=== PATIENT | male | born 1935 | race Caucasian/White ===

== ENCOUNTER 2017-11-28 12:10 | Emergency (ER) | payer MEDICARE ==
[~2017-11-28] VITALS: Ht 177.8 cm; Wt 79.4 kg
[~2017-11-28 12:10] MED LIST: ALBU2SYR2 PO; APIX5TAB3 PO; ASPI-630 PO; ATOR40TA PO; CAPT12.52 PO; DRON400T PO; GARL1CAP3 PO; LEVO500T8 PO; META10TA PO; METO50TA4 PO; NIAC500T PO; OMEP40CA2 PO; SOTA160T PO; WARF2TAB7 PO
[2017-11-28 12:51] LABS: BASO % 1 % (0-3); EOS % 1 % (0-3); HEMATOCRIT 41.8 % (39.0-53.0); HEMOGLOBIN 14.1 g/dL (13.0-17.5); LYMPH # 1.2 x10^3/uL (1.0-4.8); LYMPH % 15 % (24-48); MEAN CORPUSCULAR HEMOGLOBIN 32 pg (25-35); MEAN CORPUSCULAR HGB CONC 34 g/dL (31-37); MEAN CORPUSCULAR VOLUME 95 fL (79-100); MONO # 0.8 x10^3/uL (0.0-1.1); MONO % 10 % (0-9); NEUT # 5.8 x10^3uL (1.8-7.7); NEUT % 74 % (31-73); PLATELET COUNT 191 x10^3/uL (140-400); RED BLOOD COUNT 4.41 x10^6/uL (4.30-5.70); RED CELL DISTRIBUTION WIDTH 13.4 % (11.5-14.5); WHITE BLOOD COUNT 7.8 x10^3/uL (4.0-11.0)
--- NOTE | 2017-11-28 13:02 | EKG ---
[address] [address] Test Date: 2017-11-28 Test Time: 12:58:32 Pat Name: SIOBHAN NOBLES Department: Room: Gender: M Solution Lead: BOY : 1935 Requested By: ULICES ABREU Order Number: [id number] Reading MD: Measurements Intervals [place] Rate: 80 P: -90 ND: 198 QRS: -5 QRSD: 124 T: 24 QT: 414 QTc: 481 Interpretive Statements SINUS RHYTHM VENTRICULAR PREMATURE COMPLEX(ES) LEFTWARD AXIS QRS(T) CONTOUR ABNORMALITY CONSISTENT WITH INFERIOR INFARCT PROBABLY OLD ABNORMAL ECG RI6.01 Compared to ECG 07/26/2016 15:24:49 No significant changes
--- NOTE | 2017-11-28 13:12 | RAD ---
Exam: AP portable chest History: Shortness of air. Comparison: None. Findings: The heart and mediastinal structures are within normal limits for size. Lungs are without infiltrate. No pleural effusion or pneumothorax is identified. Emphysematous changes of lungs can be seen. Dual-lead AICD by left subclavian approach is present. Impression: 1. No acute cardiopulmonary process. Electronically signed by: Camron Newsome MD (11/28/2017 1:10 PM) [place] [id number]
[2017-11-28 13:14] LABS: ALBUMIN 3.1 g/dL (3.4-5.0); CALCIUM 9.1 mg/dL (8.5-10.1); CREATININE 0.9 mg/dL (0.7-1.3); DIRECT BILIRUBIN 0.3 mg/dL (0.0-0.2); GFR 80.8; POTASSIUM 3.9 mmol/L (3.5-5.1); TOTAL BILIRUBIN 1.2 mg/dL (0.2-1.0); TOTAL PROTEIN 6.6 g/dL (6.4-8.2)
[2017-11-28] MEDS ORDERED: FURO-69 PO (13:46)
--- NOTE | 2017-11-28 13:51 | PHYS DOC ---
Past History Past Medical History: CAD, [place], Other Past Surgical History: Other Alcohol Use: None Drug Use: None Adult General Chief Complaint Chief Complaint: SHORTNESS OF BREATH HPI HPI 82-year-old male presenting to the emergency department today with orthopnea at night difficulty sleeping and shortness of breath with exertion. He feels no shortness of breath currently. He denies any pain. He denies fevers or chills. He reports recently getting over influenza but is feeling much better from this. He is not coughing any longer and does not have any muscle aches. He has not been having a fever. He has a history of coronary artery disease status post pacemaker/defibrillator. He denies any swelling in his legs. He denies abdominal pain nausea vomiting diaphoresis fevers or chills. This shortness of breath that is worse when he lays down has been present for a little over a week. Review of systems is negative for chest pain abdominal pain fevers chills oliguria dysuria headache neck stiffness. All other review of systems is negative unless otherwise noted in history of present illness. ED course: 82-year-old male presenting to the emergency department today with worsening shortness of breath when he lays down and with exertion however currently is asymptomatic. On arrival, nl hr. Satting well on RA. bp wnl. On examination the patient is well-appearing breathing comfortably without any distress. He is alert and nontoxic appearing. Lungs are clear to auscultation bilaterally. Abdomen is soft nontender nondistended without any down tenderness or guarding. Negative McBurney's point. Negative Cummings sign. No edema present the legs. No signs of cellulitis or any new rashes. Otherwise exam is unremarkable. EKG obtained and reviewed by myself shows sinus rhythm with a regular rate. Not suggestive of ischemia. similar to previous 07.26.16. Chest x- ray obtained shows no obvious acute abnormality. No infiltrate. No effusion. No pneumothorax. Blood work unremarkable including a negative troponin. Oxygen saturations remain within normal limits while in the emergency room. We had the patient have a monitored oxygen saturations ambulation test. He was able to ambulate without any drop in his oxygen saturations. I offered the patient to be admitted the hospital for serial troponin monitoring and to monitor his symptoms however the patient declined. He desires to be discharged home. ProBNP is mildly elevated. Clinically is having some signs of heart failure (orthopnea and elevated probnp) without any signs of pulm edema on chest xray or crackles on auscultation. He is clinically oxygenating well in the emergency department and asymptomatic. I wrote the patient for 20 mg of furosemide daily and instructed him to follow-up with his primary care doctor in the next 2-3 days. I also recommended he follow up with his production technologist within the next 4-5 days. The patient was then discharged home in stable condition to follow up with their primary care physician over the next 2-3 days. They were to return if their symptoms worsened or if they were concerned for any reason. [id number] discharge instructions and return precautions were given. Patient's questions were answered to their satisfaction. Patient is comfortable with plan. Review of Systems Review of Systems SEE ABOVE. Allergies Allergies Allergies Coded Allergies Type Severity Reaction Last Updated Verified No Known Drug Allergies 11/23/14 No Physical Exam Physical Exam SEE ABOVE Constitutional: Well developed, well nourished, no acute distress, non-toxic appearance. [] HENT: Normocephalic, atraumatic, bilateral external ears normal, oropharynx moist, no oral exudates, nose normal. [] Eyes: PERRLA, EOMI, conjunctiva normal, no discharge. [] Neck: Normal range of motion, no tenderness, supple, no stridor. [] Cardiovascular: nl heart rate w/ regular rhythm, no murmur Lungs & Thorax: Bilateral breath sounds clear to auscultation [] Abdomen: Bowel sounds normal, soft, no tenderness, no masses, no pulsatile masses. [] Skin: Warm, dry, no erythema, no rash. [] Back: No tenderness, no CVA tenderness. [] Extremities: No tenderness, no cyanosis, no clubbing, ROM intact, no edema. [] Neurologic: Alert and oriented X 3, normal motor function, normal sensory function, no focal deficits noted. [] Psychologic: Affect normal, judgement normal, mood normal. [] Current Patient Data Lab Results Laboratory Tests Test 11/28/17 12:37 White Blood Count 7.8 x10^3/uL (4.0-11.0) Red Blood Count 4.41 x10^6/uL (4.30-5.70) Hemoglobin 14.1 g/dL (13.0-17.5) Hematocrit 41.8 % (39.0-53.0) Mean Corpuscular Volume 95 fL (79-100) Mean Corpuscular Hemoglobin 32 pg (25-35) Mean Corpuscular Hemoglobin Concent 34 g/dL (31-37) Red Cell Distribution Width 13.4 % (11.5-14.5) Platelet Count 191 x10^3/uL (140-400) Neutrophils (%) (Auto) 74 % (31-73) H Lymphocytes (%) (Auto) 15 % (24-48) L Monocytes (%) (Auto) 10 % (0-9) H Eosinophils (%) (Auto) 1 % (0-3) Basophils (%) (Auto) 1 % (0-3) Neutrophils # (Auto) 5.8 x10^3uL (1.8-7.7) Lymphocytes # (Auto) 1.2 x10^3/uL (1.0-4.8) Monocytes # (Auto) 0.8 x10^3/uL (0.0-1.1) Eosinophils # (Auto) 0.0 x10^3/uL (0.0-0.7) Basophils # (Auto) 0.0 x10^3/uL (0.0-0.2) Sodium Level 129 mmol/L (136-145) L Potassium Level 3.9 mmol/L (3.5-5.1) Chloride Level 96 mmol/L (98-107) L Carbon Dioxide Level 23 mmol/L (21-32) Anion Gap 10 (6-14) Blood Urea Nitrogen 11 mg/dL (8-26) Creatinine 0.9 mg/dL (0.7-1.3) Estimated GFR (Cockcroft-Gault) 80.8 Glucose Level 107 mg/dL (70-99) H Calcium Level 9.1 mg/dL (8.5-10.1) Total Bilirubin 1.2 mg/dL (0.2-1.0) H Direct Bilirubin 0.3 mg/dL (0.0-0.2) H Aspartate Amino Transferase (AST) 22 U/L (15-37) Alanine Aminotransferase (ALT) 29 U/L (16-63) Alkaline Phosphatase 61 U/L (46-116) Troponin I Quantitative < 0.017 ng/mL (0-0.055) LZ-Wxb-E-Type Natriuretic Peptide 1166 pg/mL (0-449) H Total Protein 6.6 g/dL (6.4-8.2) Albumin 3.1 g/dL (3.4-5.0) L Lipase 147 U/L (73-393) EKG EKG [] Radiology/Procedures Radiology/Procedures [] Course & Med Decision Making Course & Med Decision Making Pertinent Labs and Imaging studies reviewed. (See chart for details) [] Dragon Disclaimer Dragon Disclaimer This electronic medical record was generated, in whole or in part, using a voice recognition dictation system. Departure Departure: Impression: Primary Impression: Orthopnea Disposition: HOME, SELF-CARE Condition: STABLE Referrals: MARIELA KAY (PCP) Patient Instructions: Shortness of Breath, Kwph-uo-Vlor Additional Instructions: Thank you for allowing us to participate in your care today. Followup with your primary care physician in 3 days if your symptoms do not improve. Call your Primary Doctor tomorrow and inform them of your visit today. If you do not have a primary care provider you can ask for a list of our primary care providers. Return to the emergency department you have any new or concerning findings. This should be evaluated by the primary care physician and any necessary consulting services for continued management within a few days after discharge. Return to emergency room if you have any new or concerning symptoms including but not limited to fever, chills, nausea, vomiting, intractable pain, any new rashes, chest pain, shortness of air, uncontrolled bleeding, difficulty breathing, and/or vision loss. Scripts Furosemide (LASIX) 20 Mg Tablet 1 TAB PO DAILY, #7 TAB 0 Refills Prov: ULICES ABREU MD 11/28/17 ULICES ABREU MD Nov 28, 2017 13:51
[2017-11-28 13:52] VITALS: BP 129/87
== END 2017-11-28 14:14 | disposition home or self-care (01) ==
LOC: ER 12:10
DX: R06.01 Orthopnea (principal); I25.10 Atherosclerotic heart disease of native coronary artery without angina pectoris; I25.2 Old myocardial infarction
CPT/HCPCS: 36415; 71045; 80048; 80076; 83690; 83880; 84484; 85025; 93005; 94640; 99285-25

== ENCOUNTER → 2018-01-18 | Outpatient (CLI) | payer MEDICARE ==
[~2018-01-18] MED LIST changes: +FURO-69 PO; -WARF2TAB7 PO; +WARF2TAB96 PO
[2018-01-18 13:10] LABS: CALCIUM 8.6 mg/dL (8.5-10.1); CREATININE 0.9 mg/dL (0.7-1.3); GFR 80.8; MAGNESIUM 1.9 mg/dL (1.8-2.4); POTASSIUM 3.9 mmol/L (3.5-5.1)
== END | disposition home or self-care (01) ==
LOC: LAB 12:15
PROVIDERS: ATTEND Internal Medicine Cardiovascular Disease
DX: I47.2 Ventricular tachycardia (principal); E78.5 Hyperlipidemia, unspecified
CPT/HCPCS: 36415; 80048; 83735

== ENCOUNTER → 2018-08-20 | Outpatient (CLI) | payer MEDICARE ==
--- NOTE | 2018-08-20 15:47 | RAD ---
Two-view right hand 08/20/2018 Clinical indications: Fall with continued right hand pain after one month. COMPARISON: None. FINDINGS: No acute fracture or traumatic malalignment. Mild osteopenia. 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 Mild scattered DIP and PIP osteoarthritis. Soft tissues unremarkable. IMPRESSION: 1. No acute osseous abnormality. 2. Scattered mild hand and wrist osteoarthritis, as detailed above. Electronically signed by: Bertrand Thornton MD (08/20/2018 3:44 PM) [id number]
== END | disposition home or self-care (01) ==
LOC: RAD 08:55
PROVIDERS: ATTEND Physician Assistant Medical
DX: M19.031 Primary osteoarthritis, right wrist (principal); M19.041 Primary osteoarthritis, right hand; M85.841 Other specified disorders of bone density and structure, right hand
CPT/HCPCS: 73120

== ENCOUNTER → 2019-06-24 | Outpatient (CLI) | payer MEDICARE ==
--- NOTE | 2019-06-24 08:31 | RAD ---
RIBS RIGHT AND PA CHEST 06/24/2019 7:48 AM INDICATION: Chest wall pain COMPARISON: 11/28/2017 chest radiograph TECHNIQUE: Portable frontal view of the chest is provided. 3 views the right ribs are provided. FINDINGS: The cardiomediastinal silhouette is similar in appearance. Pulmonary emphysematous changes are present. Left chest wall cardiac device is identified with leads projecting over the right atrium and right ventricle. There may be a 7.5 mm soft tissue nodule in the right lower lobe projecting over the anterior right sixth rib. There are no significant pleural effusions. There is no pulmonary vascular congestion. No pneumothorax. No acutely displaced right-sided rib fracture is visualized. No suspicious osseous abnormality. S-shaped scoliosis of the thoracolumbar spine with apex dextrocurvature at L2-L3. [place] levocurvature is noted at L4-L5. IMPRESSION: 1. Pulmonary emphysematous changes with possible 7.5 mm soft tissue nodule in the right lower lobe. Further evaluation with chest CT is recommended. 2. No acutely displaced right-sided rib fracture is identified. 3. S-shaped scoliosis of the thoracolumbar spine. Electronically signed by: Patricia Arcos MD (06/24/2019 8:28 AM) [facility]
== END | disposition home or self-care (01) ==
LOC: RAD 07:37
PROVIDERS: ATTEND Physician Assistant Medical
DX: J43.8 Other emphysema (principal); R07.89 Other chest pain
CPT/HCPCS: 71101

== ENCOUNTER → 2019-06-27 | Outpatient (CLI) | payer MEDICARE ==
--- NOTE | 2019-06-27 12:54 | RAD ---
EXAM: CT Chest without IV contrast CLINICAL HISTORY: Abnormality on chest x-ray COMPARISON: 06/24/2019 TECHNIQUE: CT of the chest without intravenous contrast. Axial, coronal and sagittal reformatted images were generated. ---PQRS compliance statement - One or more of the following individualized dose reduction techniques were utilized for this study: 1. Automated exposure control 2. Adjustment of the mA and/or kV according to patient size 3. Use of iterative reconstruction technique--- FINDINGS: Lack of intravenous contrast limits evaluation of solid organs, vasculature, and lymph nodes. Chest: Heart is not enlarged. Coronary artery calcifications are seen. Pacer leads are seen within the heart. No pericardial effusion. Bilateral emphysematous changes are seen. A 4 mm left apical lung nodule is stable to 01/02/2016. A 7 mm left apical lung nodule (series 2 image 22) was not seen on prior examination. Calcified granuloma left lower lobe. A 1 cm right apical pleural-based lung nodule is stable to borderline decreased. An 8 mm right upper lobe lung nodule (series 2 image 61) is stable. No pleural effusion or pneumothorax. No thoracic lymphadenopathy by size criteria. Visualized Upper abdomen: A 1.1 cm left hepatic lobe cystic lesion is seen. Multiple renal cystic lesions are partially profiled bilaterally. Bones: Multiple subacute anterior right rib fractures are seen. IMPRESSION: 1. Bilateral lung nodules are seen including a new 7 mm left apical lung nodule. Follow-up in 3-6 months is recommended. 2. Additional bilateral lung nodules are essentially stable. Electronically signed by: Jared Miguel MD (06/27/2019 12:52 PM) [facility]
== END | disposition home or self-care (01) ==
LOC: CT 09:08
PROVIDERS: ATTEND Physician Assistant Medical
DX: R91.8 Other nonspecific abnormal finding of lung field (principal); J43.9 Emphysema, unspecified
CPT/HCPCS: 71250

== ENCOUNTER → 2019-07-09 | Outpatient (CLI) | payer MEDICARE ==
[~2019-07-09] MED LIST changes: +IOHEXOL 240 MG/ML 50ML VIAL. ONE; +IOHEXOL 300 MG/ML 75 ML VIAL. IV ONE
[2019-07-09 08:36] LABS: BASO % 0 % (0-3); EOS # 0.1 x10^3/uL (0.0-0.7); EOS % 1 % (0-3); HEMATOCRIT 44.9 % (39.0-53.0); HEMOGLOBIN 14.9 g/dL (13.0-17.5); LYMPH # 1.1 x10^3/uL (1.0-4.8); LYMPH % 14 % (24-48); MEAN CORPUSCULAR HEMOGLOBIN 32 pg (25-35); MEAN CORPUSCULAR HGB CONC 33 g/dL (31-37); MEAN CORPUSCULAR VOLUME 96 fL (79-100); MONO # 0.8 x10^3/uL (0.0-1.1); MONO % 11 % (0-9); NEUT # 5.8 x10^3uL (1.8-7.7); NEUT % 74 % (31-73); PLATELET COUNT 204 x10^3/uL (140-400); RED BLOOD COUNT 4.67 x10^6/uL (4.30-5.70); WHITE BLOOD COUNT 7.8 x10^3/uL (4.0-11.0)
[2019-07-09 08:46] LABS: ALBUMIN 3.5 g/dL (3.4-5.0); ALBUMIN/GLOBULIN RATIO 0.9 (1.0-1.7); CALCIUM 8.8 mg/dL (8.5-10.1); CREATININE 1.1 mg/dL (0.7-1.3); GFR 63.9; POTASSIUM 4.6 mmol/L (3.5-5.1); TOTAL BILIRUBIN 0.6 mg/dL (0.2-1.0); TOTAL PROTEIN 7.4 g/dL (6.4-8.2)
[2019-07-09 09:41] LABS: SEDIMENTATION RATE 9 (0-15)
--- NOTE | 2019-07-09 10:20 | RAD ---
The abdomen and pelvis wit CT of the abdomen and pelvis with contrast 07/09/2019 10:03 AM Technique: Multidetector CT imaging of the abdomen and pelvis was performed following the administration of IV contrast. Findings: Partially visualized lung bases demonstrate cystic changes, likely reflecting emphysema. Ill-defined low-attenuation lesion in the posterior right liver is seen measuring 3.4 cm longitudinally by 2.8 cm AP by 1.7 cm transverse. Some peripheral nodular enhancement may be present. Stable from prior exams likely a hemangioma. Remaining liver is grossly unremarkable. Probable cholelithiasis noted within the gallbladder. The adrenal glands are within normal limits. The spleen is unremarkable. Multiple renal cysts are seen bilaterally. Multiple indeterminate attenuation renal lesions are seen bilaterally. Within the inferior right kidney there is mild increase in size in the relatively hyperdense lesion measuring 2 cm on today's exam, previously measuring 1.6 cm. Other smaller similar-appearing lesions appear slightly larger as well. Larger higher attenuation lesion in the superior left kidney measures 2.4 cm on today's exam, previously measuring 1.9 cm. Lesions most likely reflect hemorrhagic or proteinaceous cysts, though solid renal neoplasms cannot be excluded on the basis of this exam. Follow-up multiphase CT could be considered as clinically indicated. The pancreas is unremarkable. A rectal stump is noted. The remainder of the colon appears to be surgically removed. No evidence of bowel obstruction is identified. Visualized bowel demonstrates no acute inflammatory change. A right lower quadrant ileostomy is noted. Contrast is seen through small bowel extending into the ostomy appliance. No free fluid or free air is seen in the abdomen or pelvis. There is an infrarenal abdominal aortic aneurysm measuring is in diameter, grossly unchanged. Diffuse osseous sclerotic vascular disease is noted. Impression: 1. No evidence of acute intra-abdominal abnormality is identified 2. Multiple indeterminate attenuation renal lesions, some of which have increased in size.Lesions most likely reflect hemorrhagic or proteinaceous cysts, though solid renal neoplasms cannot be excluded on the basis of this exam. Follow-up multiphase CT could be considered as clinically indicated. 3. Cholelithiasis 3. Prior colectomy. No evidence of obstruction. CT DOSING PQRS STATEMENT: One or more of the following individualized dose reduction techniques were utilized for this examination: 1. Automated exposure control 2. Adjustment of the mA and/or kV according to patient size 3. Use of iterative reconstruction technique Electronically signed by: Papo Forde MD (07/09/2019 10:17 AM) [id number]
== END | disposition home or self-care (01) ==
LOC: CT 08:01
PROVIDERS: ATTEND Physician Assistant Medical
DX: K80.20 Calculus of gallbladder without cholecystitis without obstruction (principal); I71.4 Abdominal aortic aneurysm, without rupture; N28.1 Cyst of kidney, acquired; K76.9 Liver disease, unspecified; Z90.49 Acquired absence of other specified parts of digestive tract
CPT/HCPCS: 36415; 74177; 80053; 85025; 85651; Q9967

== ENCOUNTER → 2019-07-18 | Outpatient (CLI) | payer MEDICARE ==
[~2019-07-18] MED LIST changes: +CONTRAST GIVEN MC PRN; -IOHEXOL 240 MG/ML 50ML VIAL. ONE
--- NOTE | 2019-07-18 17:34 | RAD ---
CT ABDOMEN WO/W CONTRAST Indication: Abnormal CT Technique: Pre and postcontrast CT imaging was performed of the abdomen, multiplanar reconstruction images submitted. Pelvis was not imaged. No oral contrast was given. One or more of the following individualized dose reduction techniques were utilized for this examination: 1. Automated exposure control 2. Adjustment of the mA and/or kV according to patient size 3. Use of iterative reconstruction technique. Comparison: 07/09/2019; older exam July 26, 2016 Findings: There are again innumerable foci of variable density of the bilateral kidneys. Several foci are hyperdense compared with the adjacent renal parenchyma on the precontrast images. Other foci are more hypodense, features of more simple cysts. No appreciable enhancement is identified of the lesions. Both kidneys enhance, no hydronephrosis. There is some cystic bronchiectasis of the visualized lung bases. There are leads from electronic cardiac device. There is cholelithiasis. There is again hypodense lesion of the posterior right lobe of the liver about 2.4 cm AP by 1.7 cm transverse by 2.4 cm CC, not well visualized on more delayed images associated with mild peripheral nodular enhancement, overall findings suggestive of hemangioma. Mild fullness of the left adrenal gland is stable comparing with older exam. There is again right abdominal ileostomy. Visualized bowel is not dilated. There is multilevel lumbar degenerative disc disease. There is infrarenal abdominal aortic aneurysm up to about 3.4 cm maximal axial dimension, about 3.2 cm on the 2016 exam. IMPRESSION: 1. There are polycystic kidneys, variable complex and hemorrhagic lesions bilaterally without appreciable enhancement of the lesions. Continued surveillance is advised such as in 6-12 months. 2. There is again hypodense lesion of the posterior right lobe of the liver likely a hemangioma. 3. There is cholelithiasis. 4. There is mild aneurysmal dilatation of the infrarenal abdominal aorta about 3.4 cm, slightly larger than 2016 exam. Electronically signed by: Tito Vick MD (07/18/2019 5:32 PM) [id number]
== END | disposition home or self-care (01) ==
LOC: CT 08:24
PROVIDERS: ATTEND Physician Assistant Medical
DX: N28.1 Cyst of kidney, acquired (principal); K80.20 Calculus of gallbladder without cholecystitis without obstruction; I71.4 Abdominal aortic aneurysm, without rupture; M51.36 Other intervertebral disc degeneration, lumbar region; J44.9 Chronic obstructive pulmonary disease, unspecified; Z93.2 Ileostomy status; Z90.89 Acquired absence of other organs; Z95.0 Presence of cardiac pacemaker; Z85.46 Personal history of malignant neoplasm of prostate
CPT/HCPCS: 74170; Q9967

== ENCOUNTER → 2019-09-18 | Outpatient (CLI) | payer MEDICARE ==
[~2019-09-18] MED LIST changes: -CONTRAST GIVEN MC PRN; -IOHEXOL 300 MG/ML 75 ML VIAL. IV ONE
[2019-09-18 13:59] LABS: MAGNESIUM 1.8 mg/dL (1.8-2.4); POTASSIUM 4.3 mmol/L (3.5-5.1)
== END | disposition home or self-care (01) ==
LOC: LAB 13:25
PROVIDERS: ATTEND Internal Medicine Cardiovascular Disease
DX: I47.2 Ventricular tachycardia (principal)
CPT/HCPCS: 36415; 83735; 84132

== ENCOUNTER → 2019-10-31 | Outpatient (CLI) | payer MEDICARE ==
[2019-10-31 10:57] LABS: ALBUMIN 3.5 g/dL (3.4-5.0); CALCIUM 8.8 mg/dL (8.5-10.1); GFR 71.2; MAGNESIUM 1.9 mg/dL (1.8-2.4); POTASSIUM 4.5 mmol/L (3.5-5.1); TOTAL BILIRUBIN 0.9 mg/dL (0.2-1.0); TOTAL PROTEIN 7.1 g/dL (6.4-8.2)
== END | disposition home or self-care (01) ==
LOC: LAB 09:12
PROVIDERS: ATTEND Internal Medicine Cardiovascular Disease
DX: E83.42 Hypomagnesemia (principal); E78.00 Pure hypercholesterolemia, unspecified; R25.2 Cramp and spasm
CPT/HCPCS: 36415; 80053; 83735

== ENCOUNTER → 2019-12-26 | Outpatient (CLI) | payer MEDICARE ==
--- NOTE | 2019-12-26 10:17 | RAD ---
EXAM: Pelvis and right hip, 3 views; lumbar spine, 5 views. HISTORY: Pain. COMPARISON: 07/19/2015 FINDINGS: Pelvis and right hip: A frontal view of the pelvis and frontal and frog-leg views of the right hip are obtained. There is right greater than left hip joint space narrowing with degenerative subchondral sclerosis and marginal femoral head spurring. There are surgical clips within the pelvis. There is lumbar scoliosis and degenerative change involving the lumbar spine, described below. There is no fracture, dislocation or subluxation. Lumbar spine: There is mild lumbar dextroscoliosis. There is degenerative endplate remodeling with disc space narrowing and osteophytosis at multiple levels. This is predominantly along the right aspect of L4-L5, corresponding with the level of maximum scoliotic concavity. There is no significant listhesis. There is multilevel facet arthropathy. No fracture is seen. There is partial visualization of a cardiac pacemaker defibrillator lead. IMPRESSION: 1. Multilevel degenerative change throughout the lumbar spine and moderate bilateral hip osteoarthritis. 2. No acute osseous finding. Electronically signed by: Elmira Jimenez MD (12/26/2019 10:15 AM) [facility]
== END ==
LOC: RAD 09:40
PROVIDERS: ATTEND Physician Assistant Medical
DX: M16.0 Bilateral primary osteoarthritis of hip (principal); M47.816 Spondylosis without myelopathy or radiculopathy, lumbar region; M48.061 Spinal stenosis, lumbar region without neurogenic claudication; M41.86 Other forms of scoliosis, lumbar region
CPT/HCPCS: 72110; 73502

== ENCOUNTER → 2020-01-16 | Outpatient (CLI) | payer MEDICARE ==
[2020-01-16 08:58] LABS: ALBUMIN/GLOBULIN RATIO 0.8 (1.0-1.7); CALCIUM 8.4 mg/dL (8.5-10.1); GFR 71.2; MAGNESIUM 1.7 mg/dL (1.8-2.4); TOTAL BILIRUBIN 0.8 mg/dL (0.2-1.0); TOTAL PROTEIN 6.7 g/dL (6.4-8.2)
== END | disposition home or self-care (01) ==
LOC: LAB 08:18
PROVIDERS: ATTEND Internal Medicine Cardiovascular Disease
DX: I10 Essential (primary) hypertension (principal)
CPT/HCPCS: 36415; 80053; 83735

== ENCOUNTER → 2020-02-11 | Outpatient (CLI) | payer MEDICARE ==
--- NOTE | 2020-02-11 08:48 | RAD ---
CT Abdomen and Pelvis without contrast History: Abdominal pain, urinary frequency Technique: Noncontrast CT imaging was performed of the abdomen and pelvis. Multiplanar images are reviewed. Exposure: One or more of the following individualized dose reduction techniques were utilized for this examination: 1. Automated exposure control 2. Adjustment of the mA and/or kV according to patient size 3. Use of iterative reconstruction technique. Comparison: July 18, 2019 Findings: Leads from electronic cardiac device are noted. There is again cystic bronchiectasis and emphysema of the visualized lung bases. Accurate evaluation of abdominal visceral organs is limited without intravenous contrast, no new obvious focal abnormality of the spleen or pancreas. There is again hypodense lesion of the posterior right lobe of the liver up to about 2.4 cm, grossly unchanged. There is cholelithiasis. There is again infrarenal abdominal aortic aneurysm up to about 3.4 cm maximal axial dimension, similar. There are again multiple foci of variable density of the bilateral kidneys, some foci which are hyperdense and others which are more hypodense. Foci are overall similar. There is no hydronephrosis of either kidney. No ureteral calculus is identified. Some calcifications of the renal hilar regions bilaterally are apparently vascular in etiology. There is again right abdominal ileostomy. There is similar mild fullness of the left adrenal gland. Bowel is not significantly dilated. There is no free fluid or free air. There are multiple clips in the pelvis. There is multilevel lumbar degenerative disc disease and spondylosis as well as facet degenerative change. There is at least moderate spinal stenosis L3-4 and to a lesser degree at L4-5. There is lumbar dextroscoliosis. IMPRESSION: 1. There is again evidence of polycystic kidney disease, again variably complex and hemorrhagic lesions bilaterally. 2. There is similar infrarenal abdominal aortic aneurysm up to about 3.4 cm maximal axial dimension. 3. There is cholelithiasis. 4. There is again hypodense lesion of the posterior right lobe of the liver, previously demonstrated enhancement characteristics suggestive of hemangioma. Electronically signed by: Tito Vick MD (02/11/2020 8:46 AM) [id number]
== END ==
LOC: CT 07:59
PROVIDERS: ATTEND Physician Assistant Medical
DX: I71.4 Abdominal aortic aneurysm, without rupture (principal); K80.20 Calculus of gallbladder without cholecystitis without obstruction; N28.9 Disorder of kidney and ureter, unspecified; R35.0 Frequency of micturition; M51.36 Other intervertebral disc degeneration, lumbar region; M48.061 Spinal stenosis, lumbar region without neurogenic claudication; M47.812 Spondylosis without myelopathy or radiculopathy, cervical region
CPT/HCPCS: 74176

== ENCOUNTER 2021-02-28 09:08 | Emergency (ER) | payer MEDICARE ==
[~2021-02-28] VITALS: Ht 180.3 cm; Wt 84.1 kg
[~2021-02-28 09:08] MED LIST changes: -DRON400T PO; +DRON400T6 PO
[2021-02-28 09:50] LABS: CREATININE 1.6 mg/dL (0.7-1.3); GFR 41.3; POTASSIUM 4.2 mmol/L (3.5-5.1)
[2021-02-28 10:04] LABS: BASO % 0 % (0-3); EOS # 0.1 x10^3/uL (0.0-0.7); EOS % 1 % (0-3); HEMATOCRIT 42.9 % (39.0-53.0); HEMOGLOBIN 14.2 g/dL (13.0-17.5); LYMPH # 1.6 x10^3/uL (1.0-4.8); LYMPH % 15 % (24-48); MEAN CORPUSCULAR HEMOGLOBIN 32 pg (25-35); MEAN CORPUSCULAR HGB CONC 33 g/dL (31-37); MEAN CORPUSCULAR VOLUME 97 fL (79-100); MONO # 1.6 x10^3/uL (0.0-1.1); MONO % 15 % (0-9); NEUT # 7.4 x10^3uL (1.8-7.7); NEUT % 70 % (31-73); PLATELET COUNT 369 x10^3/uL (140-400); RED BLOOD COUNT 4.42 x10^6/uL (4.30-5.70); RED CELL DISTRIBUTION WIDTH 15.3 % (11.5-14.5); WHITE BLOOD COUNT 10.7 x10^3/uL (4.0-11.0)
[2021-02-28] MEDS ORDERED: IOHEXOL 240 MG/ML 50ML VIAL. ONE (10:14)
[2021-02-28 10:15] LABS: BILIRUBIN,URINE SMALL (NEG); CLARITY,URINE CLEAR; COLOR,URINE YELLOW; GLUCOSE,URINE NEG (NEG)
[2021-02-28 10:16] LABS: NITRITE,URINE NEG (NEG); UROBILINOGEN,URINE 0.2 mg/dL (0.2 mg/dL)
[2021-02-28 10:17] LABS: BACTERIA,URINE 0 /HPF (0-FEW); SQUAMOUS EPITHELIAL CELL,UR FEW /LPF; WBC,URINE 0 /HPF (0-4)
[2021-02-28 10:18] LABS: HYALINE CASTS, URINE FEW /HPF
[2021-02-28 11:10] LABS: ALBUMIN 3.7 g/dL (3.4-5.0); DIRECT BILIRUBIN 0.2 mg/dL (0.0-0.2); TOTAL PROTEIN 7.4 g/dL (6.4-8.2)
--- NOTE | 2021-02-28 11:11 | RAD ---
CT of the abdomen and pelvis with oral contrast only 02/28/2021 INDICATION: Decreased urine output. History of colostomy. Abdominal pain. COMPARISON STUDY: CT of the abdomen February 11, 2020 TECHNIQUE: Multidetector CT imaging of the abdomen and pelvis was performed following the administrat ion of oral contrast. IV contrast was not given. FINDINGS: The bilateral lung bases demonstrate emphysematous changes and pleural parenchymal scarring , similar to comparison studies. Somewhat ill-defined hypoattenuation in the inferior posterior right liver measuring 3.7 cm in diameter is unchanged, and previously demonstrated to most likely be a hem angioma. The liver is stable in appearance. Cholelithiasis noted. Adrenal glands are normal. Polycyst ic kidney disease again noted. Multiple low and high density cysts are noted. Some cysts demonstrate peripheral areas of calcification. The overall appearance is grossly unchanged. There is no nephrolit hiasis or hydronephrosis identified. Ureters are unremarkable in course and caliber. There is a casandra ter within the bladder which is essentially completely decompressed. Gas is noted within the bladder. Atrophic changes of the pancreas are noted. Pancreas is otherwise unremarkable. There is no evidence of bowel obstruction. Colon is surgically removed. There is a right lower quadrant ileostomy.. Surgi gunner clips noted throughout the pelvis. The prostate is nonvisualized. Correlate with surgical history . Contrast is seen extending into the colostomy bag without evidence of obstruction. No focal inflamm atory change involving visualized bowel is appreciated. Redemonstration of an infrarenal abdominal ao rtic aneurysm. Maximal aneurysm diameter is approximately 3.7 cm. When measured in a comparable fashi on this is grossly unchanged. Diffuse atherosclerotic vascular disease noted. IMPRESSION: 1. Stable appearance of the abdomen without evidence of acute abnormality 2. Polycystic kidney disease with combination of simple and complex cysts, similar to comparison stud y 3. Hypodense lesion in the posterior right liver measuring 3.7 cm, previously demonstrated to most li colt be a hemangioma 4. Status post subtotal colectomy with right lower quadrant ileostomy. No obstruction. Contrast seen in the ileostomy bag. 5. Other chronic changes as described above CT DOSING PQRS STATEMENT: One or more of the following individualized dose reduction techniques were utilized for this examinat ion: 1. Automated exposure control 2. Adjustment of the mA and/or kV according to patient size 3. Use of iterative reconstruction technique Electronically signed by: Papo Forde MD (02/28/2021 11:09 AM) [id number]
[2021-02-28] MEDS ORDERED: IV NORMAL SALINE 500ML 500 ML IV ONE (11:30)
--- NOTE | 2021-02-28 11:32 | PHYS DOC ---
Past History Past Medical History: A-Fib, Diverticulitis, Hypertension, Hypotension, AL, Other Past Surgical History: Pacemaker, Other Additional Past Surgical Histo: left lower quad; defib/pacemaker Alcohol Use: None Drug Use: None Adult General Chief Complaint Chief Complaint: PAIN ON URINATION [facility] Patient is an 85-year-old male who presents to the emergency room complaining of decreased urination. Patient states that last week he had swelling in his legs and abdomen. He saw his transition of care specialist who recommended decreasing his sodium intake. After doing this his swelling in his legs did significantly improve. He did continue to have this distention feeling in his abdomen. They called the transition of care specialist on Sunday who recommended he take 80 of Lasix and go on fluid restrictions. Over the last 5 days patient has had a difficult time urinating. He states he wakes up in the morning evening and has to urinate but only gets dribbles out. He states he feels like his bladder must be distended. He has never had this problem previously. He denies any nausea, vomiting, decreased output in his ileostomy. Review of Systems Review of Systems Complete ROS is negative unless otherwise documented in HPI Current Medications Current Medications Current Medications Medications (Trade) Dose Ordered Sig/Shahriar Start Time Stop Time Status Last Admin Dose Admin Iohexol (Omnipaque 240 Mg/ml) 50 ml STK-MED ONCE 02/28/21 10:14 02/28/21 10:14 DC Allergies Allergies Allergies Coded Allergies Type Severity Reaction Last Updated Verified No Known Drug Allergies 02/28/21 No Physical Exam Physical Exam General: Awake, alert, NAD. Well Nourished, well hydrated. Cooperative HEENT: Atraumatic, EOMI, PERRL, airway patent, moist oral mucosa Neck: Supple, trachea midline Respiratory: CTA bilaterally, normal effort, no wheezing/crackles CV: RRR, no murmur, cap refill <2 GI: Soft, nondistended, left lower quadrant tenderness, no masses MSK: No obvious deformities Skin: Warm, dry, intact Neuro: A&O x3, speech NL, sensory and motor grossly intact, no focal deficits Psych: Normal affect, normal mood, not suicidal or homicidal Current Patient Data Vital Signs Vital Signs Date Time Temp Pulse Resp B/P (MAP) Pulse Ox O2 Delivery O2 Flow Rate FiO2 02/28/21 09:10 98.1 75 18 121/87 (98) 95 Room Air Lab Results Laboratory Tests Test 02/28/21 09:20 02/28/21 09:45 White Blood Count 10.7 x10^3/uL (4.0-11.0) Red Blood Count 4.42 x10^6/uL (4.30-5.70) Hemoglobin 14.2 g/dL (13.0-17.5) Hematocrit 42.9 % (39.0-53.0) Mean Corpuscular Volume 97 fL (79-100) Mean Corpuscular Hemoglobin 32 pg (25-35) Mean Corpuscular Hemoglobin Concent 33 g/dL (31-37) Red Cell Distribution Width 15.3 % (11.5-14.5) H Platelet Count 369 x10^3/uL (140-400) Neutrophils (%) (Auto) 70 % (31-73) Lymphocytes (%) (Auto) 15 % (24-48) L Monocytes (%) (Auto) 15 % (0-9) H Eosinophils (%) (Auto) 1 % (0-3) Basophils (%) (Auto) 0 % (0-3) Neutrophils # (Auto) 7.4 x10^3uL (1.8-7.7) Lymphocytes # (Auto) 1.6 x10^3/uL (1.0-4.8) Monocytes # (Auto) 1.6 x10^3/uL (0.0-1.1) H Eosinophils # (Auto) 0.1 x10^3/uL (0.0-0.7) Basophils # (Auto) 0.0 x10^3/uL (0.0-0.2) Sodium Level 137 mmol/L (136-145) Potassium Level 4.2 mmol/L (3.5-5.1) Chloride Level 101 mmol/L (98-107) Carbon Dioxide Level 24 mmol/L (21-32) Anion Gap 12 (6-14) Blood Urea Nitrogen 22 mg/dL (8-26) Creatinine 1.6 mg/dL (0.7-1.3) H Estimated GFR (Cockcroft-Gault) 41.3 Glucose Level 118 mg/dL (70-99) H Calcium Level 9.0 mg/dL (8.5-10.1) Total Bilirubin 1.0 mg/dL (0.2-1.0) Direct Bilirubin 0.2 mg/dL (0.0-0.2) Aspartate Amino Transferase (AST) 26 U/L (15-37) Alanine Aminotransferase (ALT) 30 U/L (16-63) Alkaline Phosphatase 76 U/L (46-116) DV-Pmy-D-Type Natriuretic Peptide 525 pg/mL (0-449) H Total Protein 7.4 g/dL (6.4-8.2) Albumin 3.7 g/dL (3.4-5.0) Urine Collection Type U cath Urine Color Yellow Urine Clarity Clear Urine pH 5.5 Urine Specific [place] 1.025 Urine Protein >100 mg/dl (NEG-TRACE) Urine Glucose (UA) Neg mg/dL (NEG) Urine Ketones (Stick) Neg mg/dL (NEG) Urine Blood Small (NEG) Urine Nitrite Neg (NEG) Urine Bilirubin Small (NEG) Urine Urobilinogen Dipstick 0.2 mg/dL (0.2 mg/dL) Urine Leukocyte Esterase Neg (NEG) Urine RBC 1-2 /HPF (0-2) Urine WBC 0 /HPF (0-4) Urine Squamous Epithelial Cells Few /LPF Urine Bacteria 0 /HPF (0-FEW) Urine Hyaline Casts Few /HPF Urine Mucus Slight /LPF EKG EKG [] Radiology/Procedures Radiology/Procedures [] Heart Score C/O Chest Pain: N/A Risk Factors: Risk Factors: DM, Current or recent (<one month) smoker, HTN, HLP, family history of CAD, obesity. Risk Scores: Risk Factors: DM, Current or recent (<one month) smoker, HTN, HLP, family history of CAD, obesity. Course & Med Decision Making Course & Med Decision Making Pertinent Labs and Imaging studies reviewed. (See chart for details) Patient is an 85-year-old male who presents to the emergency room complaining of decreased urination. Upon arrival to the emergency room we were unable to get a reliable bladder scan. Walters was placed without difficulty. Patient only had an output of 30. Is unlikely that he has urinary retention. UA does not show significant bacteria. CT abdomen pelvis will be done due to patient's distention. Lab work was also done. Patient has a mildly elevated creatinine. It may be that patient is not urinating appropriately due to decreased intake. He otherwise is well-appearing. Will remove the Walters and give him 500 mL of IV saline. Patient's test results and vitals while in the ED were fully reviewed and discussed with the patient. Patient is stable and at this time does not need admission to the hospital. We have discussed strict return precautions and the importance of following up with their Primary Care Physician. Patient stated understanding and was given an opportunity to ask any questions. Patient is in agreement with plan. Dragon Disclaimer Dragon Disclaimer This electronic medical record was generated, in whole or in part, using a voice recognition dictation system. Departure Departure: Impression: Primary Impression: Decreased urination Additional Impression: Dehydration Disposition: HOME / SELF CARE / HOMELESS Condition: STABLE Referrals: MARIELA KAY (PCP) Patient Instructions: Dehydration, Adult Problem Qualifiers BRENNAN CAI MD Feb 28, 2021 11:32
[2021-02-28 13:13] VITALS: BP 130/82
== END 2021-02-28 13:13 | disposition home or self-care (01) ==
LOC: ER 09:08
DX: R39.198 Other difficulties with micturition (principal); E86.0 Dehydration; N32.89 Other specified disorders of bladder; I48.91 Unspecified atrial fibrillation; I10 Essential (primary) hypertension; I25.2 Old myocardial infarction; Z95.0 Presence of cardiac pacemaker
CPT/HCPCS: 36415; 51701; 74176; 80048; 80076; 81001; 83880; 85025; 96360; 96361; 99285; J7040